=== PATIENT | female | born 1940 | race African-American/Black ===

== ENCOUNTER → 2019-04-24 | Outpatient (CLI) | payer OTHER ==
--- NOTE | 2019-04-26 18:37 | SLE ---
[facility] [place] [address] POLYSOMNOGRAPHY STUDY Name: JENN MILLER Kae Room #: [facility]#: [id number] Admission: 04/24/19 Attend Phys: Zaid Dubois MD Discharge: Date of : 44 Report #: [id number] THIS REPORT FOR: //name// CC: Zaid Rice MD DATE OF SERVICE: 04/24/2019 ATTENDING PHYSICIAN: Dr. Gregor Rice. Patient is 79 years old who weighs 208 pounds with a BMI of 36.8. The patient's [place] score was 13. The patient had a previous sleep study and was found to have moderate FORREST at an AHI of 21 per hour. Since the patient was clinically symptomatic, the patient was referred for in-lab CPAP titration study. During the night study, the patient spent 452 minutes in bed and slept for 271 minutes with a low sleep efficiency of 60%. Sleep latency was 25 minutes with a REM latency of 193 minutes. Sleep architecture showed increased stage 1 sleep, normal stage 2 sleep, absent slow wave and reduced REM sleep, which was 10% of total sleep time. EKG monitoring revealed an average heart rate of 68 beats per minute. Occasional sinus tachycardia seen. Maximum heart rate of 98 beats per minute. Frequent PVCs were observed as well, but no sustained arrhythmias seen. PLMS were seen at an index of 1 per hour and 0.9 per hour caused EEG arousals. The patient was started on CPAP at a pressure of 7 cm water and titrated up to 14 cm of water. At the final pressure, the patient slept for 59 minutes. The patient did have lateral REM sleep. The patient's AHI was reduced to 1 per hour and oxygen saturations remained above 93%. IMPRESSION: 1. Moderate sleep apnea diagnosed by previous sleep study. 2. No clinically significant periodic limb movements. 3. Reduced sleep efficiency resulting from sleep maintenance insomnia. RECOMMENDATIONS: 1. CPAP at 14 cm water completely eliminated the patient's sleep apnea and should be used on a nightly basis. 2. Follow up in 4-6 weeks to assess compliance with CPAP and to document clinical improvement. 3. Weight loss is strongly advised. 4. Avoid ELECTRIC SW[employer]PA[employer]ER depressants. [facility] [address] [place] [address] POLYSOMNOGRAPHY STUDY Name: JENN MILLER Room #: [facility]#: [id number] Admission: 04/24/19 Attend Phys: Zaid Dubois MD Discharge: Date of : 44 Report #: [id number] 5. Cautioned regarding driving until symptoms of sleep apnea resolve with the use of CPAP. 6. If patient's insomnia persists despite effective use of CPAP, then it should be further evaluated and treated according to the etiology. <ELECTRONICALLY SIGNED> By: Zaid Dubois MD 04/26/19 [id number] Zaid Dubois MD /nt
== END ==
LOC: SLEEPLAB 04-01 08:59
DX: G47.33 Obstructive sleep apnea (adult) (pediatric) (principal); G47.30 Sleep apnea, unspecified